=== PATIENT | male | born 1995 | race Caucasian/White ===

== ENCOUNTER 2018-09-28 10:31 | Emergency (ER) | payer BC, OTHER ==
[2018-09-28 11:11] LABS: Absolute Lymphocytes (CBC) 2.1 K/uL (0.7-4.9); Basophils % 0.4 % (0-1.3); Hematocrit 45.6 % (39.6-49.0); Lymphocytes % 31.4 % (15.3-44.8); MPV 8.7 fL (7.6-11.3); RBC Red Blood Cell Count 4.93 M/uL (4.33-5.43)
[2018-09-28 11:24] LABS: Albumin 4.4 g/dL (3.4-5.0); Bilirubin Direct 0.2 mg/dL (0-0.2); Bilirubin Total 0.7 mg/dL (0.2-1.0); Potassium 3.6 mmol/L (3.5-5.1); Protein, Total 7.9 g/dL (6.4-8.2)
--- NOTE | 2018-09-28 11:30 | RAD REPORT ---
EXAM DESCRIPTION: US - Abdomen Exam Limited - 09/28/2018 11:15 am CLINICAL HISTORY: ABD PAIN COMPARISON: No comparisons FINDINGS: The gallbladder demonstrates no gallstones. No pericholecystic fluid or gallbladder wall t hickening. The common bile duct is normal measuring 3 mm. The liver demonstrates no findings of intrahepatic biliary dilatation. IMPRESSION: Unremarkable examination.
--- NOTE | 2018-09-28 11:46 | ER ---
Nurse's Notes [facility] Name: Tony Pierson Age: 23 yrs Sex: Male : 1995 Arrival Date: 09/28/2018 Time: 10:37 Bed 17 Private MD: Diagnosis: Upper abdominal pain, unspecified Presentation: 09/28 10:43 Presenting complaint: RUQ pain x 2 days, pain is worse after swallowing fluids/food. hb Transition of care: patient was not received from another setting of care. Onset of symptoms was September 27, 2018. Risk Assessment: Do you want to hurt yourself or someone else? Patient reports no desire to harm self or others. Care prior to arrival: None. 10:43 Method Of Arrival: Ambulatory hb 10:43 Acuity: DELBERT 3 hb 12:09 Initial Sepsis Screen: Does the patient meet any 2 criteria? No. Patient's initial tw2 sepsis screen is negative. Does the patient have a suspected source of infection? No. Patient's initial sepsis screen is negative. Triage Assessment: 10:50 General: Appears in no apparent distress. Behavior is calm, cooperative, appropriate tw2 for age. Pain: Complains of pain in abdomen. Historical: - Allergies: 10:45 No Known Allergies; hb - Home Meds: 10:45 clindamycin HCl Oral [Active]; hb - PMHx: 10:45 None; hb - PSHx: 10:45 None; hb - Immunization history:: Adult Immunizations up to date. - Social history:: Smoking status: Patient/guardian denies using tobacco. - Ebola Screening: : No symptoms or risks identified at this time. Screenin:50 Abuse screen: Denies threats or abuse. Nutritional screening: No deficits noted. tw2 Tuberculosis screening: No symptoms or risk factors identified. Fall Risk None identified. Assessment: 10:45 General: Appears in no apparent distress. slender, Behavior is calm, cooperative, tw2 appropriate for age. Pain: Complains of pain in abdomen. Neuro: Level of Consciousness is awake, alert, obeys commands, Oriented to person, place, time, situation. Cardiovascular: Heart tones S1 S2 Patient's skin is warm and dry. Respiratory: Airway is patent Respiratory effort is even, unlabored, Respiratory pattern is regular, symmetrical, Breath sounds are clear bilaterally. GI: Bowel sounds present X 4 quads. Reports indigestion. : No signs and/or symptoms were reported regarding the genitourinary system. EENT: No signs and/or symptoms were reported regarding the EENT system. Derm: No signs and/or symptoms reported regarding the dermatologic system. Musculoskeletal: Range of motion: intact in all extremities. 12:04 Reassessment: Patient appears in no apparent distress at this time. No changes from tw2 previously documented assessment. Patient and/or family updated on plan of care and expected duration. Pain level reassessed. Patient is alert, oriented x 3, equal unlabored respirations, skin warm/dry/pink. Vital Signs: 10:44 BP 154 / 75; Pulse 77; Resp 16; Temp 97.5; Pulse Ox 100% on R/A; Weight 86.18 kg; hb Height 6 ft. 3 in. (190.50 cm); Pain 7/10; 12:04 BP 115 / 71; Pulse 75; Resp 17; Pulse Ox 100% on R/A; tw2 10:44 Body Mass Index 23.75 (86.18 kg, 190.50 cm) hb ED Course: 10:37 Patient arrived in ED. mr 10:44 Triage completed. hb 10:44 Arm band placed on. hb 10:45 Bed in low position. Call light in reach. tw2 10:46 Ana Brunner FNP-C is [facility]. kb 10:46 Sebastian Garcia MD is Attending Physician. kb 10:49 Radha Delacruz, KATHY is Primary Nurse. tw2 11:15 US Abdomen Limited In Process Unspecified. EDMS 11:19 Initial lab(s) drawn, by ok, sent to lab. Inserted saline lock: 20 gauge in right ms antecubital area, using aseptic technique. Blood collected. 12:04 No provider procedures requiring assistance completed. tw2 12:10 IV discontinued, intact, bleeding controlled, No redness/swelling at site. Pressure tw2 dressing applied. Administered Medications: No medications were administered Outcome: 11:45 Discharge ordered by . kb 12:09 Discharged to home ambulatory. tw2 12:09 Condition: stable 12:09 Discharge instructions given to patient, Instructed on discharge instructions, follow up and referral plans. medication usage, Demonstrated understanding of instructions, follow-up care, medications, Prescriptions given X 1. 12:10 Patient left the ED. tw2 Signatures: Dispatcher [employer] EDMS Ana Brunner, TETO-C SOAPSTONER-Mora Jackis, Wendy Shen ms RN Radha Bell RN RN tw2
--- NOTE | 2018-09-28 11:46 | EDPHYS ---
Physician Documentation [facility] Name: Tony Pierson Age: 23 yrs Sex: Male : 1995 Arrival Date: 09/28/2018 Time: 10:37 Bed 17 Private MD: ED Physician Sebastian Garcia HPI: 09/28 11:54 This 23 yrs old Male presents to ER via Ambulatory with complaints of kb Indigestion problem. 11:55 The patient presents with abdominal pain in the right upper quadrant. Onset: The kb symptoms/episode began/occurred yesterday. The symptoms do not radiate. Associated signs and symptoms: none. The symptoms are described as intermittent. Modifying factors: The symptoms are alleviated by nothing, the symptoms are aggravated by nothing. Severity of pain: At its worst the pain was moderate in the emergency department the pain is unchanged. The patient has not experienced similar symptoms in the past. The patient has not recently seen a physician. Pt reports he has had RUQ pain when he swallows anything since yesterday. Reports the substance feels like it gets to a certain point in the digestive system and gets stuck for a little bit before going down again. Denies pain at this time. Historical: - Allergies: 10:45 No Known Allergies; hb - Home Meds: 10:45 clindamycin HCl Oral [Active]; hb - PMHx: 10:45 None; hb - PSHx: 10:45 None; hb - Immunization history:: Adult Immunizations up to date. - Social history:: Smoking status: Patient/guardian denies using tobacco. - Ebola Screening: : No symptoms or risks identified at this time. ROS: 11:52 Constitutional: Negative for fever, chills, and weight loss, Cardiovascular: Negative kb for chest pain, palpitations, and edema, Respiratory: Negative for shortness of breath, cough, wheezing, and pleuritic chest pain, Back: Negative for injury and pain, : Negative for injury, bleeding, discharge, and swelling, MS/Extremity: Negative for injury and deformity, Skin: Negative for injury, rash, and discoloration, Neuro: Negative for headache, weakness, numbness, tingling, and seizure. 11:52 Abdomen/GI: Positive for abdominal pain. Exam: 11:53 Constitutional: This is a well developed, well nourished patient who is awake, alert, kb and in no acute distress. Head/Face: Normocephalic, atraumatic. Neck: Trachea midline, no thyromegaly or masses palpated, and no cervical lymphadenopathy. Supple, full range of motion without nuchal rigidity, or vertebral point tenderness. No Meningismus. Chest/axilla: Normal chest wall appearance and motion. Nontender with no deformity. No lesions are appreciated. Cardiovascular: Regular rate and rhythm with a normal S1 and S2. No gallops, murmurs, or rubs. Normal PMI, no JVD. No pulse deficits. Respiratory: Lungs have equal breath sounds bilaterally, clear to auscultation and percussion. No rales, rhonchi or wheezes noted. No increased work of breathing, no retractions or nasal flaring. Abdomen/GI: Soft, non-tender, with normal bowel sounds. No distension or tympany. No guarding or rebound. No evidence of tenderness throughout. Skin: Warm, dry with normal turgor. Normal color with no rashes, no lesions, and no evidence of cellulitis. MS/ Extremity: Pulses equal, no cyanosis. Neurovascular intact. Full, normal range of motion. Neuro: Awake and alert, GCS 15, oriented to person, place, time, and situation. Cranial nerves II-XII grossly intact. Motor strength 5/5 in all extremities. Sensory grossly intact. Cerebellar exam normal. Normal gait. Vital Signs: 10:44 BP 154 / 75; Pulse 77; Resp 16; Temp 97.5; Pulse Ox 100% on R/A; Weight 86.18 kg; hb Height 6 ft. 3 in. (190.50 cm); Pain 7/10; 12:04 BP 115 / 71; Pulse 75; Resp 17; Pulse Ox 100% on R/A; tw2 10:44 Body Mass Index 23.75 (86.18 kg, 190.50 cm) hb MDM: 10:48 Patient medically screened. kb 11:53 Data reviewed: vital signs, nurses notes. Data interpreted: Pulse oximetry: on room air kb is 100 %. Interpretation: normal. 11:54 Counseling: I had a detailed discussion with the patient and/or guardian regarding: the kb historical points, exam findings, and any diagnostic results supporting the discharge/admit diagnosis, lab results, radiology results, the need for outpatient follow up, a centerless grinder, to return to the emergency department if symptoms worsen or persist or if there are any questions or concerns that arise at home. 09/28 10:48 Order name: Basic Metabolic Panel; Complete Time: 11:28 kb 09/28 10:48 Order name: CBC with Diff; Complete Time: 11:13 kb 09/28 10:48 Order name: Hepatic Function; Complete Time: 11:28 kb 09/28 10:48 Order name: Lipase; Complete Time: 11:28 kb 09/28 10:48 Order name: IV Saline Lock; Complete Time: 11:05 kb 09/28 11:04 Order name: US Abdomen Limited; Complete Time: 11:36 kb 09/28 10:48 Order name: Labs collected and sent; Complete Time: 11:05 kb Administered Medications: No medications were administered Disposition: 12:59 Co-signature as Attending Physician, Sebastian Garcia MD I agree with the assessment and rn plan of care. Disposition: 09/28/18 11:45 Discharged to Home. Impression: Upper abdominal pain, unspecified. - Condition is Stable. - Discharge Instructions: Abdominal Pain, Adult, [id number]. - Prescriptions for Protonix 40 mg Oral Tablet - take 1 tablet by ORAL route once daily; 30 tablet. - Medication Reconciliation Form, Thank You Letter, Antibiotic Education, Prescription Opioid Use, Work release form form. - Follow up: Emergency Department; When: As needed; Reason: Worsening of condition. Follow up: Private Physician; When: 2 - 3 days; Reason: Recheck today's complaints, Continuance of care, Re-evaluation by your physician. Signatures: Dispatcher [employer] [facility] Ana Brunner, FIREARMS MODEL MAKER-C FIREAR[employer] MODEL MAKER-Ckb Sebastian Garcia MD MD rn Baxter, Heather, RN RN hb Wise, Tara, RN RN tw2 Corrections: (The following items were deleted from the chart) 12:10 11:45 09/28/2018 11:45 Discharged to Home. Impression: Upper abdominal pain, tw2 unspecified. Condition is Stable. Forms are Medication Reconciliation Form, Thank You Letter, Antibiotic Education, Prescription Opioid Use. Follow up: Emergency Department; When: As needed; Reason: Worsening of condition. Follow up: Private Physician; When: 2 - 3 days; Reason: Recheck today's complaints, Continuance of care, Re-evaluation by your physician. kb
== END 2018-09-28 12:10 | disposition home or self-care (01) ==
LOC: ER 10:31
DX: R10.11 Right upper quadrant pain (principal)
CPT/HCPCS: 36415; 76705; 80048; 80076; 83690; 85025; 99284